=== PATIENT | male | born 1980 | race Two or more races ===

== ENCOUNTER 2018-06-25 09:33 | Emergency (ER) | END 2018-06-25 13:10 | disposition home or self-care (01) ==

== ENCOUNTER 2018-09-03 05:13 | Emergency (ER) | payer OTHER ==
[~2018-09-03] VITALS: Ht 160 cm; Wt 60.7 kg
[~2018-09-03 05:13] MED LIST: HYDR-4011 PO; TAMS-14 PO
[2018-09-03 05:15] VITALS: Ht 160 cm; Wt 60.7 kg
[2018-09-03] MEDS ORDERED: morphine 4 MG/ML VIAL IV STA (05:33)
[2018-09-03] MEDS ORDERED: SOD CHLORIDE 0.9% 1,000 ML IV STA (05:33)
[2018-09-03] MEDS ORDERED: ONDANSETRON 4 MG INJ IV STA (05:33)
[2018-09-03] MEDS ORDERED: IBUP-1542 PO (06:37)
--- NOTE | 2018-09-03 07:37 | ERD ---
ER Documentation Chief Complaint Chief Complaint RIGHT FLANK PAIN X4DAYS WITH NAUSEA; HX OF KIDNEY STONE HPI Patient is a 37-year-old male with kidney stone and asthma who presents with flank pain. The patient says that he started on Saturday with right-sided flank pain that radiated to his right abdomen and right testicle. He has a history of kidney stone. He describes it as a constant and throbbing pain. He tried ibuprofen at home. He has no fevers. He has no testicular swelling. Upon review of old medical records the patient one previous visit in June 2018. However review of the emergency department information exchange system shows visits to 9 different emergency departments over the past 1 year. Review of the [employer] database shows multiple prescriptions filled by different providers including 4 previous prescriptions just this month of August. The patient says that he does not have a primary doctor. ROS All systems reviewed and are negative except as per history of present illness. Medications Home Meds Active Scripts Ibuprofen* (Motrin*) 600 Mg Tab, 600 MG PO Q6H PRN for PAIN AND OR ELEVATED TEMP, #30 TAB Prov:CHRISTIANNE GOYAL MD 09/03/18 Tamsulosin Hcl* (Flomax*) 0.4 Mg Cap.er.24h, 0.4 MG PO QPM, #30 CAP Prov:FERNANDA VALENTE PA-C 06/25/18 Hydrocodone/Acetaminophen ([place] 5-325 Tablet) 1 Each Tablet, 1 TAB PO Q6H PRN for PAIN, #7 TAB Prov:FERNANDA VALENTE PA-C 06/25/18 Allergies Allergies: Coded Allergies: tramadol (Verified Allergy, Unknown, hives, 06/25/18) PMhx/Soc History of Surgery: Yes (Lithotrypsy 2010, Inguinal hernia repair,Appendectomy) Hx Respiratory Disorders: Yes (ASTHMA) Hx Cardiac Disorders: No Hx Miscellaneous Medical Probl: Yes (Hx Kidney stones) Hx Alcohol Use: No Hx Substance Use: No Hx Tobacco Use: Yes Smoking Status: Former smoker FmHx Family History: diabetes Physical Exam Vitals Vital Signs Date Temp Pulse Resp B/P (MAP) Pulse Ox O2 O2 Flow FiO2 Time Delivery Rate 09/03/18 98.0 70 14 127/92 100 Room Air 06:27 (104) 09/03/18 98.0 69 19 144/72 100 05:15 (96) Physical Exam Const: No acute distress Head: Atraumatic Eyes: Normal Conjunctiva ENT: Normal External Ears, Nose and Mouth. Neck: Full range of motion. No meningismus. Resp: Clear to auscultation bilaterally Cardio: Regular rate and rhythm, no murmurs Abd: Soft, non tender, non distended. Normal bowel sounds Skin: No petechiae or rashes Back: No midline or flank tenderness Ext: No cyanosis, or edema Neur: Awake and alert : Right-sided testicular pain but no swelling Result Diagram: 09/03/1835 09/03/1835 Results 24 hrs Laboratory Tests Test 09/03/18 05:35 White Blood Count 7.8 10^3/ul Red Blood Count 4.88 10^6/ul Hemoglobin 14.9 g/dl Hematocrit 45.5 % Mean Corpuscular Volume 93.2 fl Mean Corpuscular Hemoglobin 30.5 pg Mean Corpuscular Hemoglobin Concent 32.7 g/dl Red Cell Distribution Width 13.9 % Platelet Count 318 10^3/UL Mean Platelet Volume 9.0 fl Immature Granulocytes % 0.300 % Neutrophils % 69.2 % Lymphocytes % 22.2 % Monocytes % 6.0 % Eosinophils % 1.4 % Basophils % 0.9 % Nucleated Red Blood Cells % 0.0 /100WBC Immature Granulocytes # 0.020 10^3/ul Neutrophils # 5.4 10^3/ul Lymphocytes # 1.7 10^3/ul Monocytes # 0.5 10^3/ul Eosinophils # 0.1 10^3/ul Basophils # 0.1 10^3/ul Nucleated Red Blood Cells # 0.0 10^3/ul Urine Color YELLOW Urine Clarity CLEAR Urine pH 8.0 Urine Specific [place] 1.014 Urine Ketones NEGATIVE mg/dL Urine Nitrite NEGATIVE mg/dL Urine Bilirubin NEGATIVE mg/dL Urine Urobilinogen NEGATIVE mg/dL Urine Leukocyte Esterase NEGATIVE [place] Urine Hemoglobin NEGATIVE mg/dL Urine Glucose NEGATIVE mg/dL Urine Total Protein NEGATIVE mg/dl Sodium Level 144 mmol/L Potassium Level 4.0 mmol/L Chloride Level 107 mmol/L Carbon Dioxide Level 29 mmol/L Anion Gap 8 Blood Urea Nitrogen 14 mg/dl Creatinine 1.02 mg/dl Est Glomerular Filtrat Rate mL/min > 60 mL/min Glucose Level 117 mg/dl Calcium Level 9.1 mg/dl Total Bilirubin 0.2 mg/dl Direct Bilirubin 0.00 mg/dl Indirect Bilirubin 0.2 mg/dl Aspartate Amino Transf (AST/SGOT) 32 IU/L Alanine Aminotransferase (ALT/SGPT) 31 IU/L Alkaline Phosphatase 65 IU/L Total Protein 6.7 g/dl Albumin 3.9 g/dl Globulin 2.80 g/dl Albumin/Globulin Ratio 1.39 Lipase 83 U/L Current Medications Medications Dose Sig/Tyler Start Time Status Last (Trade) Ordered Route PRN Stop Time Admin Dose Reason Admin Sodium 1,000 ml @ Q1H STAT 09/03/18 DC 09/03/18 Chloride 1,000 mls/hr IV 05:33 05:42 09/03/18 06:32 Morphine 4 mg ONCE STAT 09/03/18 DC 09/03/18 Sulfate IV 05:33 05:42 (morphine) 09/03/18 05:34 Ondansetron 4 mg ONCE STAT 09/03/18 DC 09/03/18 HCl (Zofran IV 05:33 05:42 Inj) 09/03/18 05:34 Procedures/MDM CT scan negative for obstruction or stone per radiology. Ultrasound negative for testicular torsion per radiology. Patient is a 37-year-old male who presents with right-sided flank pain. The patient feels better after morphine. Laboratory studies were normal and urinalysis was negative. CT scan and ultrasound did not show any signs of catherine rgical process or kidney stone. I believe there is drug-seeking behavior here as the patient has multiple prescriptions filled by different providers and multiple visits to various ERs. I would not give him narcotics in the future. He has been referred to our chronic pain committee for development of a care plan. I doubt kidney stone, appendicitis, cholecystitis, pancreatitis, or bowel obstruction. Departure Diagnosis: Primary Impression: Flank pain Condition: Fair Patient Instructions: Flank Pain, Uncertain Cause Referrals: DAVID FUNES MD [facility] YOU HAVE RECEIVED A MEDICAL SCREENING EXAM AND THE RESULTS INDICATE THAT YOU DO NOT HAVE A CONDITION THAT REQUIRES URGENT TREATMENT IN THE EMERGENCY DEPARTMENT. FURTHER EVALUATION AND TREATMENT OF YOUR CONDITION CAN WAIT UNTIL YOU ARE SEEN IN YOUR DOCTORS OFFICE WITHIN THE NEXT 1-2 DAYS. IT IS YOUR RESPONSIBILITY TO MAKE AN APPOINTMENT FOR FOLOW-UP CARE. IF YOU HAVE A PRIMARY DOCTOR --you should call your primary doctor and schedule an appointment IF YOU DO NOT HAVE A PRIMARY DOCTOR YOU CAN CALL OUR PHYSICIAN REFERRAL HOTLINE AT IF YOU CAN NOT AFFORD TO SEE A PHYSICIAN YOU CAN CHOSE FROM THE FOLLOWING [facility] [address] [facility] [facility]. [facility] [address] [facility] [address] [facility] [facility] [address] [facility] [facility] [address] [facility]. [facility] [address] Additional Instructions: Call your primary care doctor TOMORROW for an appointment during the next 1-2 days.See the doctor sooner or return here if your condition worsens before your appointment time. CHRISTIANNE GOYAL MD Sep 03, 2018 07:37
[2018-09-03 08:01] VITALS: BP 123/87; PULSE 72; RESP 16
== END 2018-09-03 08:01 | disposition home or self-care (01) ==
LOC: E/R 05:13
DX: R10.9 Unspecified abdominal pain (principal); J45.909 Unspecified asthma, uncomplicated; Z87.891 Personal history of nicotine dependence
CPT/HCPCS: 36415; 74176; 76870; 80053; 81003; 83690; 85025; 96374; 96375; J2270; J2405; J7030; Z7502